=== PATIENT | female | born 1965 | race Hispanic/Latino ===

== ENCOUNTER 2019-12-04 16:12 | Emergency (ER) | payer OTHER ==
[~2019-12-04] VITALS: Ht 162.6 cm; Wt 54.4 kg
[2019-12-04] MEDS ORDERED: PANTOPRAZOLE 40 MG 10ML VIAL IV STA (16:23)
[2019-12-04 16:49] LABS: BASOPHILS # (AUTO) 0.1 (0.0-0.1); BASOPHILS % 0.8 % (0.0-1.0); EOSINOPHILS # (AUTO) 0.1 (0.0-0.4); EOSINOPHILS % 1.8 % (0.0-6.0); HEMATOCRIT 40.8 % (34.2-44.1); HEMOGLOBIN 13.3 g/dL (12.0-16.0); LYMPHOCYTES % 33.5 % (18.0-39.1); MEAN CORPUSCULAR HEMOGLOBIN 28.7 pg (28-32); MEAN CORPUSCULAR HGB CONC 32.6 g/dL (31-35); MEAN CORPUSCULAR VOLUME 87.9 fL (81-99); MONOCYTES # (AUTO) 0.5 (0.2-0.8); MONOCYTES % 8.4 % (4.4-11.3); NEUTROPHILS # (AUTO) 3.4 (2.1-6.9); NEUTROPHILS % 55.3 % (38.7-80.0); PLATELET COUNT 285 x10e3/uL (140-360); RED BLOOD COUNT 4.64 x10e6/uL (3.6-5.1); RED CELL DISTRIBUTION WIDTH 12.7 % (11.7-14.4)
[2019-12-04 16:53] LABS: INR 0.85; PARTIAL THROMBOPLASTIN TIME 32.6 seconds (23.8-35.5)
[2019-12-04 17:04] LABS: ALANINE AMINOTRANSFERASE 24 IU/L (0-55); ALBUMIN 4.2 g/dL (3.5-5.0); ALBUMIN/GLOBULIN RATIO 1.3 (0.8-2.0); ALKALINE PHOSPHATASE 78 IU/L (40-150); ANION GAP 12.7 mmol/L (8-16); BLOOD UREA NITROGEN 16 mg/dL (7-26); BUN/CREATININE RATIO 21 (6-25); CALCIUM 9.6 mg/dL (8.4-10.2); CARBON DIOXIDE 26 mmol/L (22-29); CHLORIDE 109 mmol/L (98-107); CREATINE KINASE 115 IU/L (29-168); CREATININE, SERUM 0.75 mg/dL (0.57-1.11); EST GLOMERULAR FILTRATION RATE > 60 ML/MIN (60-); GLUCOSE 93 mg/dL (74-118); MAGNESIUM 1.9 MG/DL (1.3-2.1); POTASSIUM 3.7 mmol/L (3.5-5.1); SODIUM 144 mmol/L (136-145)
[2019-12-04 17:24] LABS: THYROID STIMULATING HORMONE 1.059 uIU/mL (0.350-4.940)
--- NOTE | 2019-12-04 17:42 | Emergency Department Note ---
History of Present Illnes History of Present Illness Chief Complaint: Chest Pain History of Present Illness This is a 54 year old female SUBSTERNAL CHEST TIGHTNESS WITH FEELING HER HEART BEATING FAST x 4 DAYS. PT STATES WORSE ON TUESDAY (3D AGO) WITH PAIN 10/10. TODAY PT STATES PAIN IS 6/10. INTERMITTENT. NON-RADIATING. NO SOB NO NAUSEA. PT AAOX4. AMBULATORY. NON SMOKER. Historian: Patient, Family Member Arrival Mode: Car Fashion Designer Required: No Onset (how long ago): day(s) (4) Location: SUBSTERNAL Quality: TIGHTNESS Radiation: Reports non-radiation Severity: severe Onset quality: gradual Timing of current episode: intermittent Progression: waxing and waning Chronicity: new Context: Denies recent illness Relieving factors: none Exacerbating factors: none Associated symptoms: Reports denies other symptoms; Denies cough, Denies diaphoresis, Denies fever/chills, Denies nausea/vomiting, Denies shortness of breath, Denies syncope, Denies weakness Treatments prior to arrival: none Past Medical/Family History Physician Review I have reviewed the patient's past medical and family history. Any updates have been documented here. Past Medical History Recent Fever: No Clinical Suspicion of Infectio: No New/Unexplained Change in Ment: No Past Medical History: None Past Surgical History: Social History Smoking Cessation: Never Smoker Counseling Performed: No Alcohol Use: Occasional Any Illegal Drug Use: No TB Exposure/Symptoms: No Physically hurt or threatened: No Family History Family history of heart diseas: No Other Any Pre-Existing Lines (PICC,: No Review of Systems Review of Systems Constitutional: Reports no symptoms EENTM: Reports no symptoms Cardiovascular: Reports as per HPI Respiratory: Reports no symptoms Gastrointestinal: Reports no symptoms Genitourinary: Reports no symptoms Musculoskeletal: Reports no symptoms Integumentary: Reports no symptoms Neurological: Reports no symptoms Psychological: Reports no symptoms Endocrine: Reports no symptoms Hematological/Lymphatic: Reports no symptoms Physical Exam Related Data Allergies: Coded Allergies: Penicillins (Verified Allergy, Unknown, 12/04/19) Triage Vital Signs Vital Signs Date Time Temp Pulse Resp B/P (MAP) Pulse Ox O2 Delivery O2 Flow Rate FiO2 12/04/19 16:19 97.9 81 16 155/84 100 Room Air Vital signs reviewed: Yes Physical Exam CONSTITUTIONAL Constitutional: Present well-developed, Present well-nourished HENT HENT: Present normocephalic, Present atraumatic, Present oropharynx clear/moist, Present nose normal HENT L/R: Present left ext ear normal, Present right ext ear normal EYES Eyes: Reports PERRL, Reports conjunctivae normal NECK Neck: Present ROM normal PULMONARY Pulmonary: Present effort normal, Present breath sounds normal CARDIOVASCULAR Cardiovascular: Present regular rhythm, Present heart sounds normal, Present capillary refill normal, Present normal rate GASTROINTESTINAL Abdominal: Present soft, Present nontender, Present bowel sounds normal GENITOURINARY Genitourinary: Present exam deferred SKIN Skin: Present warm, Present dry MUSCULOSKELETAL Musculoskeletal: Present ROM normal NEUROLOGICAL Neurological: Present alert, Present oriented x 3, Present no gross motor or sensory deficits PSYCHOLOGICAL Psychological: Present mood/affect normal, Present judgement normal Results Laboratory Result Diagram: 12/04/19 1624 12/04/19 1624 Laboratory Laboratory Tests Test 12/04/19 16:24 White Blood Count 6.06 x10e3/uL (4.8-10.8) Red Blood Count 4.64 x10e6/uL (3.6-5.1) Hemoglobin 13.3 g/dL (12.0-16.0) Hematocrit 40.8 % (34.2-44.1) Mean Corpuscular Volume 87.9 fL (81-99) Mean Corpuscular Hemoglobin 28.7 pg (28-32) Mean Corpuscular Hemoglobin Concent 32.6 g/dL (31-35) Red Cell Distribution Width 12.7 % (11.7-14.4) Platelet Count 285 x10e3/uL (140-360) Neutrophils (%) (Auto) 55.3 % (38.7-80.0) Lymphocytes (%) (Auto) 33.5 % (18.0-39.1) Monocytes (%) (Auto) 8.4 % (4.4-11.3) Eosinophils (%) (Auto) 1.8 % (0.0-6.0) Basophils (%) (Auto) 0.8 % (0.0-1.0) Neutrophils # (Auto) 3.4 (2.1-6.9) Lymphocytes # (Auto) 2.0 (1.0-3.2) Monocytes # (Auto) 0.5 (0.2-0.8) Eosinophils # (Auto) 0.1 (0.0-0.4) Basophils # (Auto) 0.1 (0.0-0.1) Absolute Immature Granulocyte (auto 0.01 x10e3/uL (0-0.1) Prothrombin Time 12.0 seconds (11.9-14.5) Prothromb Time International Ratio 0.85 Activated Partial Thromboplast Time 32.6 seconds (23.8-35.5) Sodium Level 144 mmol/L (136-145) Potassium Level 3.7 mmol/L (3.5-5.1) Chloride Level 109 mmol/L (98-107) Carbon Dioxide Level 26 mmol/L (22-29) Anion Gap 12.7 mmol/L (8-16) Blood Urea Nitrogen 16 mg/dL (7-26) Creatinine 0.75 mg/dL (0.57-1.11) Estimat Glomerular Filtration Rate > 60 ML/MIN (60-) BUN/Creatinine Ratio 21 (6-25) Glucose Level 93 mg/dL (74-118) Calcium Level 9.6 mg/dL (8.4-10.2) Magnesium Level 1.9 MG/DL (1.3-2.1) Total Bilirubin 0.3 mg/dL (0.2-1.2) Aspartate Amino Transf (AST/SGOT) 19 IU/L (5-34) Alanine Aminotransferase (ALT/SGPT) 24 IU/L (0-55) Alkaline Phosphatase 78 IU/L (40-150) Creatine Kinase 115 IU/L (29-168) Total Protein 7.5 g/dL (6.5-8.1) Albumin 4.2 g/dL (3.5-5.0) Globulin 3.3 g/dL (2.3-3.5) Albumin/Globulin Ratio 1.3 (0.8-2.0) Lab results reviewed: Yes Imaging Imaging results reviewed: Yes Impressions EXAMINATION: CHEST SINGLE (PORTABLE) INDICATION: Chest pain. COMPARISON: None FINDINGS: TUBES and LINES: None. LUNGS: Normal lung volumes. Lungs are clear. No consolidations. There is bibasilar atelectasis. PLEURA: No pleural effusion or pneumothorax. HEART AND MEDIASTINUM: The cardiomediastinal silhouette is unremarkable. BONES AND SOFT TISSUES: No acute osseous lesion. Soft tissues are unremarkable. UPPER ABDOMEN: No free air under the diaphragm. IMPRESSION: 1. No radiographic evidence of an acute cardiopulmonary process. 2. Bibasilar atelectasis. Signed by: Jim Quiles MD on 12/04/2019 5:39 PM Procedures 12 Lead ECG Interpretation ECG Interpretation : ECG: ECG 1 Fashion Designer: Interpreted by ED physician Date: Dec 04, 2019 Time: 16:21 Rhythm: sinus rhythm Rate: normal (69) QRS axis: left ST segments normal: Yes T wave inversion: V1, V2, V3 T waves flattening: III, aVF, V4, V5, V6 Other findings: LVH Clinical Impression: non-specific ECG Assessment & Plan Medical Decision Making MDM presents with chest pain. CMP, CBC, EKG, and cardiac enzymes ordered for consideration of ACS, PE, costochondritis, Chest wall pain, and pneumothorax considered. labs, imaging and EKG reviewed Reassessment Reassessment WHILE I WAS EXAMINING PT IN TRIAGE, SHE SAID SHE FELT LIKE HER HEART WAS RACING - BY EXAM AND MONITOR, HER HEART RATE WAS REGULAR AND ~70 BPM ASA 81 MG PO QDAY, AVOID STIMULANTS - CAFFEINE, DECONGESTANTS, ETC, F/U Assessment & Plan Final Impression: (1) Chest pain (2) Palpitations Depart Disposition: HOME, SELF-CARE Last Vital Signs Date Time Temp Pulse Resp B/P (MAP) Pulse Ox O2 Delivery O2 Flow Rate FiO2 12/04/19 16:51 69 13 117/95 99 12/04/19 16:19 97.9 Room Air Medications in the ED Pantoprazole Sodium 40 mg ONCE STAT IV Last administered on 12/04/19at 16:50; Admin Dose 40 MG; Start 12/04/19 at 16:23; Stop 12/04/19 at 16:30; Status DC ROSA SARAH MD Dec 04, 2019 17:42
== END 2019-12-04 18:01 | disposition home or self-care (01) ==
LOC: ER 16:20
DX: R07.89 Other chest pain (principal); R00.2 Palpitations
CPT/HCPCS: 36415; 71045; 80053; 82550; 82553; 83735; 84443; 84484; 85025; 85610; 85730; 93005; 99284; C9113